=== PATIENT | male | born 1990 | race Caucasian/White ===

== ENCOUNTER 2016-09-20 21:43 | Emergency (ER) | payer OTHER ==
[~2016-09-20] VITALS: Ht 185.4 cm; Wt 79.4 kg
[2016-09-20 21:59] VITALS: BP 129/81
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
--- NOTE | 2016-09-20 22:53 | RADIOLOGY REPORT ---
EXAMINATION: XR LUMBOSACRAL SPINE XR AP PELVIS XR SACRUM AND COCCYX CLINICAL INFORMATION: Pain after fall COMPARISON: None TECHNIQUE: AP and lateral views lumbar spine. AP pelvis. AP and lateral views of the sacrum and coccyx. FINDINGS: 5 nonrib-bearing lumbar type vertebral bodies are seen. The vertebral bodies and posterior elements are normal. The disc spaces are preserved and the vertebral alignment is normal. The paraspinal soft tissues are normal. The sacral ala are intact. The bilateral sacroiliac joints are normal. No displaced coccygeal fracture seen. No hip or pelvic fracture seen. Hip joint spaces are maintained. Pubic symphysis normal. IMPRESSION: Normal examinations of the lumbar spine, pelvis, sacrum, and coccyx.
== END 2016-09-20 23:39 ==
LOC: ERH 21:43
DX: S30.0XXA Contusion of lower back and pelvis, initial encounter (principal); V00.311A Fall from snowboard, initial encounter; Y93.23 Activity, snow (alpine) (downhill) skiing, snowboarding, sledding, tobogganing and snow tubing; Y92.838 Other recreation area as the place of occurrence of the external cause
CPT/HCPCS: 72100; 72170; 72220